=== PATIENT | male | born 1945 | race African-American/Black ===

== ENCOUNTER 2017-05-16 20:29 | Emergency (ER) | payer OTHER ==
[~2017-05-16] VITALS: Ht 177.8 cm; Wt 68.0 kg
[~2017-05-16 20:29] MED LIST: ADULT LOW DOSE81 MG PO; ANTACID650 MG PO; APAP W/CODEINE1 TA2 PO; ASA81BEC PO; BAYER CHEWABLE81 MG PO; CHLORPROMAZINE25 M1 PO; DILANTIN100 MG PO; DRISDOL50000 UNIT PO; DUONEB 2.5-0.5 M3 ML INH; ERGOCALCIF50000 UNIT PO; FOLIC ACID0.4 MG PO; FOLIC ACID1 MG PO; GLUCAGEN1 MG IM; HUMALOG100 UNIT/1 SQ; HUMALOG100 UNIT/1 SUBQ; HYDROCODON-ACE1 EAC7 PO; LANTUS SUBQ; LANTUS100 UNIT/M SQ; LANTUS100 UNIT/M SUBQ; LEVEMIR; LISINOPRIL20 MG PO; METOCLOPRAMIDE10 MG PO; MIRALAX17 GM PO; NEPHROCAPS SOFT1 CAP PO; NORVASC 5 MG TAB5 MG PO; NOVOLOG100 UNIT/1 SQ; NOVOLOG100 UNIT/1 SUBQ; PANTOPRAZOLE SO40 M1 PO; PRINIVIL20 MG PO; PROCRIT 1010000 U/M1 SUBQ; PROCRIT 1010000 U/ML SUBQ; RENAL CAPS SOFTG1 MG PO; RENVELA2.4 GM PO; SENSIPAR60 MG PO; SODIUM BICARBO650 M3 PO; TOPROL XL50 MG PO; TORSEMIDE20 MG PO; TYLENOL325 MG PO; UNKNOWN BP MED; VITAMIN B-1100 M1 PO; VITAMIN D 5050000 I1 PO; [UNRECOGNIZED DRUG - CODE] IV PUSH; [UNRECOGNIZED DRUG - REMARK]
[2017-05-16] MEDS ORDERED: AMLODIPINE BESY10 MG PO (20:52)
[2017-05-16] MEDS ORDERED: CATAPRESS3 TRANSDERM (20:53)
[2017-05-16] MEDS ORDERED: CALCIUM ACETAT667 MG PO (20:54)
[2017-05-16] MEDS ORDERED: PIOGLITAZONE15 MG (20:55)
[2017-05-16] MEDS ORDERED: CLONIDINE0.1 PO (20:55)
[2017-05-16] MEDS ORDERED: PROMOD946 ML PO (20:56)
[2017-05-16] MEDS ORDERED: CARVEDILOL12.5 MG PO (20:56)
== END 2017-05-16 22:40 | disposition home or self-care (01) ==
LOC: ER 20:29
DX: S00.83XA Contusion of other part of head, initial encounter (principal); N18.6 End stage renal disease; E11.22 Type 2 diabetes mellitus with diabetic chronic kidney disease; I12.0 Hypertensive chronic kidney disease with stage 5 chronic kidney disease or end stage renal disease; J44.9 Chronic obstructive pulmonary disease, unspecified; E11.51 Type 2 diabetes mellitus with diabetic peripheral angiopathy without gangrene; F03.90 Unspecified dementia, unspecified severity, without behavioral disturbance, psychotic disturbance, mood disturbance, and anxiety; K21.9 Gastro-esophageal reflux disease without esophagitis; M47.9 Spondylosis, unspecified; F10.99 Alcohol use, unspecified with unspecified alcohol-induced disorder; Z99.2 Dependence on renal dialysis; Z79.4 Long term (current) use of insulin; W18.09XA Striking against other object with subsequent fall, initial encounter; Y93.89 Activity, other specified; Y92.89 Other specified places as the place of occurrence of the external cause; Y99.8 Other external cause status